=== PATIENT | female | born 2000 | race African-American/Black ===

== ENCOUNTER 2025-01-13 21:53 | Emergency (ER) | payer OTHER, SELFPAY ==
[2025-01-13 22:03] VITALS: BP 109/77; PULSE 70; RESP 18; TEMP 36.6; O2SAT 100; BMI 25.3
[2025-01-13 22:30] LABS: Appearance Urine Clear; Glucose Urine UA Negative (Negative); PH 6.5 (5.0-9.0); Specific Gravity - Urine 1.020 (1.005-1.025); UMIC TRIGGER UACC YES
[2025-01-13 22:31] LABS: UPreg QC Valid YES
[2025-01-13 22:34] LABS: Hematocrit 31.1 % (42.0-52.0); Hemoglobin 9.6 g/dl (14.0-18.0); Mean Corpuscular HGB Conc 30.9 g/dl (31.0-36.0); Mean Corpuscular Hemoglobin 22.0 pg (27.0-33.0); Mean Corpuscular Volume 71.2 fL (80.0-98.0); NRBC Abs Auto 0.000 X10*3/uL (0.0-0.012); NRBC Pct Auto 0.0 /100WBC (0.0-0.2); PLT CLUMP 1; Red Blood Count 4.37 X10*6/uL (4.60-5.80)
[2025-01-13 22:42] LABS: Alanine Aminotransferase 17 U/L (0-40); Albumin Level 4.4 g/dL (3.5-5.0); Alkaline Phosphatase 73 U/L (39-117); Anion Gap 10 (12-20); Aspartate Amino Transferase 27 U/L (5-37); Blood Urea Nitrogen 10 mg/dL (9-16); Calcium 9.2 mg/dL (8.4-10.2); Carbon Dioxide 26 mmol/L (22-29); Chloride 107 mmol/L (96-108); Creatinine Clr Calc Pharmacy 111.8; Estimated Glomerular Filt Rate > 60; Lipase 47 U/L (8-78); Potassium 3.8 mmol/L (3.3-5.1); Sodium 139 mmol/L (135-145); Total Protein 7.5 g/dL (6.5-8.0)
[2025-01-13 22:48] LABS: UACC Culture Trigger YES
[2025-01-13 22:52] LABS: Platelet Count 210 X10*3/uL (160-400); White Blood Count 5.0 X10*3/uL (4.8-10.8)
[2025-01-14 01:01] VITALS: BP 121/70; PULSE 90; RESP 15; TEMP 36.7; O2SAT 99
--- NOTE | 2025-01-14 01:36 | ED_ITS ---
HPI - Abdominal Pain General Chief Complaint: Abdominal Pain Stated Complaint: abd pain Time Seen by Provider: 01/14/25 01:36 Source: patient Mode of arrival: ambulatory Limitations: no limitations History of Present Illness ED Provider: Dr. Dianne De La Fuente HPI narrative: Previously healthy 24-year-old female presenting with left-sided pelvic pain that has been ongoing for about 10 days or so. Admits that she had an irregular menstrual cycle that lasted 9 days. Admits that she has a history of ovarian cysts and thought that the pain might be related to that. No recent US since her last cyst several years ago. She does not take any oral contraceptives or other control. Has been having some dysuria but no hematuria. No reported fever. Denies nausea, vomiting, diarrhea, vaginal discharge Related Data Previous Rx's ?Medication ?Instructions ?Recorded dicyclomine 20 mg tablet 20 mg PO TID #10 tabs nitrofurantoin 100 mg PO Q12H 7 days #14 ca ps 01/14/25 monohydrate/macrocrystals 100 mg capsule (Macrobid) ondansetron 4 mg disintegrating 4 mg PO Q8H PRN nausea and 01/14/25 tablet vomiting #10 tabs Allergies Allergy/AdvReac Type Severity Reaction Status Date / Time neomycin Allergy Hives Verified 01/13/25 22:06 Review of Systems Review of Systems as per HPI, full review of systems performed and negative but for the above mentioned pertinent positives and negatives. [facility] Social History Social History Smoked in Last 30 Days: No Use of substances other than those prescribed or required for medical reasons: No Advance Directives: No Advance Directives Information Provided: Yes Physical Exam ED Exam Exam: GENERAL: Well-Appearing, conversant, no acute distress. SKIN: Normal skin color for ethnicity, warm, dry, no rashes noted. HEENT:? Normocephalic, atraumatic, no stridor, posterior oropharynx nonerythematous, dentition intact, EOMI. NECK: Soft, supple, full ROM, midline structures nontender, no step-offs, no deformities, no lymphadenopathy. CHEST: Heart regular rate and rhythm, no murmurs, symmetric chest rise and fall. PULMONARY: Clear to auscultation bilaterally, no labored breathing, no wheezes/rhales/rhonchi. ABDOMINAL: Soft, nondistended, L adnexal pain to deep palpation without guarding, positive bowel sounds in all quadrants. : Deferred. MUSCULOSKELETAL: Normal tone, full range of motion, no deformities, no peripheral edema. NEURO: Alert and oriented x3, CN II through XII intact, equal strength and sensation bilateral upper and lower extremities, no focal neurologic deficits.? PSYCHIATRIC: Normal affect, fluid speech, good eye contact and appropriate demeanor. Vital Signs: Vital Signs - 24 hr 01/13/25 22:03 01/14/25 01:01 01/14/25 02:26 Temperature 97.9 F 98.0 F 98.0 F Pulse Rate 70 90 85 Respiratory Rate 18 15 15 Blood Pressure 109/77 121/70 114/72 Pulse Oximetry 100 99 97 Oxygen Delivery Method Room Air Room Air Room Air BMI result Body Mass Index 25.3 Medical Decision Making Medical Decision Making [facility] Narrative: This patient presents today with a chief complaint of pelvic pain. Differential diagnosis is broad and would include ovarian torsion, PID, TOA, if ectopic , pyelonephritis, kidney stone, UTI among many others. A broad-based workup based on history and physical exam was obtained Patient was given motrin, dicyclomine for pain control. Differential Diagnosis Differential Diagnoses: The differential diagnosis associated with the presentation includes (as above) Admission/Observation Consideration of admission/observation: Escalation of care including admission/observation considered Lab Data [facility] Lab Attestation statement: I reviewed the patient's lab results. 01/13/25 22:17 01/13/25 22:17 Labs: Lab Results 01/13/25 01/13/25 Range/Units 22:17 22:19 WBC 5.0 (4.8-10.8) X10*3/uL RBC 4.37 L (4.60-5.80) X10*6/uL Hgb 9.6 L (14.0-18.0) g/dl Hct 31.1 L (42.0-52.0) % MCV 71.2 L (80.0-98.0) fL MCH 22.0 L (27.0-33.0) pg MCHC 30.9 L (31.0-36.0) g/dl RDW 19.8 H (11.0-16.0) % Plt Count 210 (160-400) X10*3/uL MPV 11.3 (9.4-12.4) fL Absolute Nucleated RBC 0.000 (0.0-0.012) X10*3/uL Nucleated RBC % (auto) 0.0 (0.0-0.2) /100WBC Sodium 139 (135-145) mmol/L Potassium 3.8 (3.3-5.1) mmol/L Chloride 107 (96-108) mmol/L Carbon Dioxide 26 (22-29) mmol/L Anion Gap 10 L (12-20) BUN 10 (9-16) mg/dL Creatinine 0.78 (0.5-1.4) mg/dL Estim Creat Clear Calc 111.8 Estimated GFR > 60 Random Glucose 91 (60-115) mg/dL Calcium 9.2 (8.4-10.2) mg/dL Total Bilirubin 0.3 (0.0-1.0) mg/dL Direct Bilirubin 0.1 (0.0-0.5) mg/dL AST 27 (5-37) U/L ALT 17 (0-40) U/L Alkaline Phosphatase 73 (39-117) U/L Total Protein 7.5 (6.5-8.0) g/dL Albumin 4.4 (3.5-5.0) g/dL Lipase 47 (8-78) U/L Urine Color Yellow Urine Appearance Clear Urine pH 6.5 (5.0-9.0) Ur Specific Savage 1.020 (1.005-1.025) Urine Protein Negative (Neg-Trace) mg/dL Urine Glucose (UA) Negative (Negative) mg/dL Urine Ketones Trace (Negative) mg/dL Urine Blood Negative (Negative) Urine Nitrite Negative (Negative) Ur Leukocyte Esterase Small (1+) H (Negative) Urine RBC 0-2 (0-2) /HPF Urine WBC 11-20 H (0-5) /HPF Ur Squamous Epith Cells 6-10 (0-2) /HPF Urine Bacteria 2+ (None Seen) Hyaline Casts 0-2 (0-2) /LPF Urine Test NEGATIVE (NEGATIVE) Prescription Management I considered prescription management with: Pain Medication and Antibiotic Medications Administered Discontinued Medications Generic Name Dose Route Start Last Admin Trade Name Freq PRN Reason Stop Dose Admin Dicyclomine HCl 20 mg 01/14/25 02:08 01/14/25 02:22 Dicyclomine Hcl 10 Mg Capsule PO 01/14/25 02:09 20 mg ONCE ONE Administration Ibuprofen 600 mg 01/14/25 02:08 01/14/25 02:23 Ibuprofen 600 Mg Tablet PO 01/14/25 02:09 600 mg ONCE ONE Administration Nitrofurantoin Macrocrystals 100 mg 01/14/25 02:10 01/14/25 02:22 Nitrofurantoin Monohyd/M-Cryst 100 Mg Capsule PO 01/14/25 02:11 100 mg ONCE ONE Administration Ondansetron HCl 4 mg 01/14/25 02:08 01/14/25 02:22 Ondansetron Odt 4 Mg Tab.Rapdis TRANSLINGU 01/14/25 02:09 4 mg ONCE ONE Administration Discharge Plan Discharge Clinical Impression: Acute generalized abdominal pain, Acute UTI Patient Disposition: Home, Self-Care Instructions: Urinary Tract Infection in Women (ED), Abdominal Pain (ED) Additional Instructions: Take your antibiotic as prescribed until the course is completed. Do not stop this medication early when you start to feel better. Return to the ER with any new or worsening symptoms including: Worsening pain in your abdomen despite antibiotics and pain medications, fevers greater than 100?, inability to tolerate food or drink, any new symptom that concerns you. Prescriptions: New dicyclomine 20 mg tablet 20 mg PO TID Qty: 10 0RF ondansetron 4 mg tablet,disintegrating 4 mg PO Q8H PRN (Reason: nausea and vomiting) Qty: 10 0RF nitrofurantoin monohyd/m-cryst [Macrobid] 100 mg capsule 100 mg PO Q12H 7 Days Qty: 14 0RF Rx Instructions: must administer with a meal/food Interventions: ED Discharge Assessment Last Done: 01/14/25 03:48 Discharge Date/Time: 01/14/25 03:50 Print Language: Czech
[2025-01-14 02:26] VITALS: BP 114/72; PULSE 85; RESP 15; TEMP 36.7; O2SAT 97
[2025-01-14 03:48] VITALS: BP 116/62; PULSE 66; RESP 16; TEMP 36.7; O2SAT 98
== END 2025-01-14 03:50 | disposition home or self-care (01) ==
PROVIDERS: Emergency Provider Emergency Medicine
DX: N39.0 Urinary tract infection, site not specified (principal); R10.2 Pelvic and perineal pain; N92.6 Irregular menstruation, unspecified
CPT/HCPCS: 36415; 80053; 81001; 81025; 82248; 83690; 85027; 87086; 99283; 99284